=== PATIENT | male | born 1985 | race Caucasian/White ===

== ENCOUNTER 2019-09-21 18:36 | Emergency (ER) | payer BC ==
--- NOTE | 2019-09-21 19:07 | EDM.PDOC ---
ED HPI GENERAL MEDICAL PROBLEM - General Chief Complaint: Cardiovascular Problem Stated Complaint: [facility] Time Seen by Provider: 09/21/19 19:07 - History of Present Illness INITIAL COMMENTS - FREE TEXT/NARRATIVE: 34-year-old male presents the emergency room with concerns of anxiety and poor blood pressure control. The patient is the over the road shuttle truck driver. He ran out of his lisinopril and has noticed that his blood pressures are going up. He normally takes lisinopril 20 mg a day along with hydrochlorothiazide 12.5 mg a day. Patient has not any chest pain chest pressure or breathing difficulties or shortness of breath. He was working on the phone trying to get a refill of his medication and felt lightheaded just did not feel right so he thought he had to come in to get his medication refilled. The patient is on his way back to [place], his home. And he has refills of lisinopril there. Patient has no other complaints at this time. - Related Data Allergies Allergy/AdvReac Type Severity Reaction Status Date / Time No Known Allergies Allergy Verified 09/21/19 18:46 Home Meds: Home Meds hydroCHLOROthiazide [Hydrochlorothiazide] 12.5 mg PO DAILY 09/21/19 [History] lisinopriL [Lisinopril] 20 mg PO DAILY 09/21/19 [History] lisinopriL [Lisinopril] 20 mg PO Q24H #30 tablet 09/21/19 [Rx] Past Medical History Cardiovascular History: Reports: Hypertension Social & Family History - Tobacco Use Smoking Status *Q: Current Every Day Smoker Years of Tobacco use: 10 Packs/Tins Daily: 1 ED ROS GENERAL - Review of Systems Review Of Systems: See Below Constitutional: Reports: No Symptoms. Denies: Fever, Chills HEENT: Reports: No Symptoms Respiratory: Reports: No Symptoms Cardiovascular: Reports: No Symptoms GI/Abdominal: Reports: No Symptoms ED EXAM, GENERAL - Physical Exam Exam: See Below Exam Limited By: No Limitations General Appearance: Alert, No Apparent Distress Neck: Normal Inspection, Supple, Non-Tender, Full Range of Motion Respiratory/Chest: No Respiratory Distress, Lungs Clear, Normal Breath Sounds, No Accessory Muscle Use, Chest Non-Tender Cardiovascular: Normal Peripheral Pulses, Regular Rate, Rhythm, No Edema Extremities: Normal Inspection, No Pedal Edema Course - Vital Signs Last Recorded V/S: Last Vital Signs Temp 36.4 C 09/21/19 18:39 Pulse 80 09/21/19 18:39 Resp 16 09/21/19 18:39 BP 161/120 H 09/21/19 18:39 Pulse Ox 100 09/21/19 18:39 - Orders/Labs/Meds Orders: Active Orders 24 hr Category Date Time Status lisinopriL [Prinivil] Med 09/21/19 19:27 Once 20 mg PO ONETIME ONE Meds: Medications Discontinued Medications Generic Name Dose Route Start Last Admin Trade Name [facility] PRN Reason Stop Dose Admin Lisinopril 20 mg 09/21/19 19:27 Prinivil PO 09/21/19 19:28 ONETIME ONE - Re-Assessments/Exams Free Text/Narrative Re-Assessment/Exam: 09/21/19 19:32 I discussed further work-up with the patient and he would like to hold off on this. 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 Departure - Departure Time of Disposition: 19:32 Disposition: Home, Self-Care 01 Clinical Impression: Hypertension, Anxiety Prescriptions: lisinopriL [Lisinopril] 20 mg PO Q24H #30 tablet Forms: ED Department Discharge Additional Instructions: Return to the emergency room or any other health care facility with any questions or problems or worsening symptoms. I have given you a prescription for lisinopril No. 30 take 1 daily. In the future be careful not to run out of these carry extras with you. Follow-up with your healthcare provider in [place] as needed. Sepsis Event Note (ED) - Evaluation Sepsis Screening Result: No Definite Risk - Focused Exam Vital Signs: Vital Signs Temp Pulse Resp BP Pulse Ox 09/21/19 18:39 36.4 C 80 16 161/120 H 100 - My Orders Last 24 Hours: My Active Orders 09/21/19 19:27 lisinopriL [Prinivil] 20 mg PO ONETIME ONE - Assessment/Plan Last 24 Hours: My Active Orders 09/21/19 19:27 lisinopriL [Prinivil] 20 mg PO ONETIME ONE
[2019-09-21] MEDS ORDERED: Lisinopril 10 MG Tab PO ONE (19:27)
== END 2019-09-21 19:52 | disposition home or self-care (01) ==
LOC: JD.ED 18:36
DX: I10 Essential (primary) hypertension (principal); F41.9 Anxiety disorder, unspecified; F17.210 Nicotine dependence, cigarettes, uncomplicated; Z79.899 Other long term (current) drug therapy
CPT/HCPCS: 99283; A9270